=== PATIENT | female | born 1970 | race Caucasian/White ===

== ENCOUNTER 2016-10-14 12:48 | Emergency (ER) | payer BC ==
[~2016-10-14] VITALS: Ht 175.3 cm; Wt 139.7 kg
[~2016-10-14 12:48] MED LIST: PRENTAB26 PO
[2016-10-14 12:54] VITALS: Ht 175.3 cm; Wt 139.7 kg
[2016-10-14] MEDS ORDERED: SODIUM CHLORIDE 0.9% 1000ML 1,000 ML IV STA (13:14)
[2016-10-14] MEDS ORDERED: ACETAMINOPHEN 500 MG TAB PO STA (13:14)
--- NOTE | 2016-10-14 13:28 | EMERGENCY ROOM VISIT NOTE ---
History Report prepared by Floyd: Ramone Salinas Under the Supervision of: Dr. Jimmy Calabrese M.D. First contact with patient: 13:10 Chief Complaint: CHEST PAIN Stated Complaint: CHEST PAIN,BLOOD PRESSURE ALL OVER,NOT FEELING WEL Nursing Triage Summary: Pt called PCP and was referred here. On Tuesday pt felt like her heart was racing and has had CP intermittently for the past few days. CP is now gone, but doesn' t feel well. Pt verbalizes she has been checking her BP at home and it has been "all over the place". History of Present Illness The patient is a 46 year old female who presents to the Emergency Room with complaints of resolving chest pain that started 2 days ago. She says that she woke up 2 mornings ago, and her heart was racing. She was unsure if it was anxiety-related, but ever since then, she has been having intermittent chest pain. The patient adds that she has not been feeling well. She says that yesterday, the chest pain was constant but not too bad. She states that today, her chest doesn't feel right but the pain is mostly gone. She says that the pain is not worsened with deep breathing. The patient called her primary care physician this morning, and was sent here. She notes that her blood pressure has been "all over the place" for the past few days. The patient says she has no history of this chest pain. She says that she has been eating and drinking fine recently, and she denies any shortness of breath, nausea, vomiting, diarrhea, fevers, chills, cough, constipation, or leg swelling. The patient adds that recently, if she goes a while without eating, she starts shaking, but it is resolved by eating. She says she has no history of anxiety, and has had no new stresses recently. The patient denies any recent lifting of heavy objects , but she notes that she has been walking more again recently, as she hurt her knee in January. The patient says that her father had a heart attack in his late 40s, and he was a smoker. The patient is a non-smoker. She takes blood pressure and hypertension medication daily. Source of History: patient Onset: 2 days ago Position: chest Timing: other (resolving) Associated Symptoms: No fevers, No chills, No cough, No SOB, No nausea, No vomiting, No diarrhea Note: Associated symptoms: Not feeling "well". Denies constipation, leg swelling. Review of Systems See HPI for pertinent positives and negatives. A total of ten systems were reviewed and were otherwise negative. Past Medical & Surgical Medical Problems: (1) HLD (hyperlipidemia) (2) HTN (hypertension) Family History Heart disease Social History Smoking Status: Never Smoker Smokeless Tobacco Use: No Marital Status: Housing Status: lives with family Occupation Status: employed Current/Historical Medications Scheduled Atorvastatin (Lipitor), 20 MG PO DAILY Hydrochlorothiazide (Hydrochlorothiazide), 12.5 MG PO DAILY Allergies Coded Allergies: Ibuprofen (Verified Allergy, Unknown, MOTRIN, 10/14/16) Physical Exam Vital Signs Date Time Temp Pulse Resp B/P (MAP) Pulse Ox O2 Delivery O2 Flow Rate FiO2 10/14/16 16:09 36.9 73 14 136/91 98 10/14/16 15:42 73 14 136/91 98 Room Air 10/14/16 14:03 100 Room Air 10/14/16 14:03 74 20 158/98 100 Room Air 10/14/16 13:24 66 10/14/16 12:54 36.9 74 18 167/92 98 Physical Exam GENERAL: Awake, alert, well-appearing, in no distress HENT: Normocephalic, atraumatic. Oropharynx unremarkable. Dry mucous membranes. EYES: Normal conjunctiva. Sclera non-icteric. NECK: Supple. No nuchal rigidity. FROM. No JVD. RESPIRATORY: Clear to auscultation. CHEST: Reproducible left-sided chest pain. CARDIAC: Regular rate, normal rhythm. Extremities warm and well perfused. Pulses equal. ABDOMEN: Obese, soft, non-distended. No tenderness to palpation. No rebound or guarding. No masses. RECTAL: Deferred. MUSCULOSKELETAL: Chest examination reveals no tenderness. The back is symmetrical on inspection without obvious abnormality. There is no CVA tenderness to palpation. No joint edema. LOWER EXTREMITIES: Calves are equal size bilaterally and non-tender. No edema. No discoloration. NEURO: Normal sensorium. No sensory or motor deficits noted. SKIN: No rash or jaundice noted. Medical Decision & Procedures ER Provider Diagnostic Interpretation: X-ray: Per my interpretation, radiologist review. CHEST ONE VIEW PORTABLE HISTORY: Atypical CHEST PAIN COMPARISON: No priors for comparison due to PACS downtime. FINDINGS: Cardiac silhouette is borderline enlarged. Mild central pulmonary vascular congestion. No evidence for pulmonary edema. No pleural effusions. No pneumothorax. No focal lung consolidations. IMPRESSION: Borderline enlargement of the cardiac silhouette with mild central pulmonary vascular congestion. Electronically signed by: Carlito Carter M.D. 10/14/2016 2:10 PM Dictated Date/Time: 10/14/2016 2:09 PM Laboratory Results 10/14/16 13:05 Red Blood Count 4.42, Mean Corpuscular Volume 89.8, Mean Corpuscular Hemoglobin 31.0, Mean Corpuscular Hemoglobin Concent 34.5, Mean Platelet Volume 8.9, Neutrophils (%) (Auto) 52.6, Lymphocytes (%) (Auto) 29.0, Monocytes (%) (Auto) 11.1, Eosinophils (%) (Auto) 6.3, Basophils (%) (Auto) 0.7, Neutrophils # (Auto ) 3.93, Lymphocytes # (Auto) 2.16, Monocytes # (Auto) 0.83, Eosinophils # (Auto ) 0.47, Basophils # (Auto) 0.05 10/14/16 13:05 Test 10/14/16 13:05 White Blood Count 7.46 K/uL (4.8-10.8) Red Blood Count 4.42 M/uL (4.2-5.4) Hemoglobin 13.7 g/dL (12.0-16.0) Hematocrit 39.7 % (37-47) Mean Corpuscular Volume 89.8 fL (80-100) Mean Corpuscular Hemoglobin 31.0 pg (25-34) Mean Corpuscular Hemoglobin Concent 34.5 g/dl (32-36) Platelet Count 258 K/uL (130-400) Mean Platelet Volume 8.9 fL (7.4-10.4) Neutrophils (%) (Auto) 52.6 % Lymphocytes (%) (Auto) 29.0 % Monocytes (%) (Auto) 11.1 % Eosinophils (%) (Auto) 6.3 % Basophils (%) (Auto) 0.7 % Neutrophils # (Auto) 3.93 K/uL (1.4-6.5) Lymphocytes # (Auto) 2.16 K/uL (1.2-3.4) Monocytes # (Auto) 0.83 K/uL (0.11-0.59) Eosinophils # (Auto) 0.47 K/uL (0-0.5) Basophils # (Auto) 0.05 K/uL (0-0.2) RDW Standard Deviation 40.1 fL (36.4-46.3) RDW Coefficient of Variation 12.2 % (11.5-14.5) Immature Granulocyte % (Auto) 0.3 % Immature Granulocyte # (Auto) 0.02 K/uL (0.00-0.02) Anion Gap 7.0 mmol/L (3-11) Est Creatinine Clear Calc Drug Dose 132.6 ml/min Estimated GFR () 102.5 Estimated GFR (Non- 88.4 BUN/Creatinine Ratio 13.8 (10-20) Calcium Level 8.6 mg/dl (8.5-10.1) Troponin I < 0.015 ng/ml (0-0.045) Pro-B-Type Natriuretic Peptide 70 pg/ml (0-450) Laboratory results reviewed by me Medications Administered Medications (Trade) Dose Ordered Sig/Jeanie Route Start Time Stop Time Status Last Admin Dose Admin Sodium Chloride 1,000 ml @ 999 mls/hr Q1H1M STAT IV 10/14/16 13:14 10/14/16 14:14 DC 10/14/16 14:01 999 MLS/HR Acetaminophen (Tylenol Tab) 1,000 mg NOW STAT PO 10/14/16 13:14 10/14/16 13:23 DC 10/14/16 14:00 1,000 MG ECG Indication: chest pain Rate (beats per minute): 76 Rhythm: normal sinus Findings: no acute ischemic change, other (normal axis) ED Course 1312: The patient was evaluated in room B4B. A complete history and physical exam was performed. 1314: Ordered Tylenol Tab 1000 mg PO, NSS 1000 ml @ 999 mls/hr IV. 1532: I reevaluated the patient, and did an echo, which revealed no pericardial effusion and a good EF. The patient verbally expressed understanding and agreement of the treatment plan. The patient will be discharged. Medical Decision I reviewed the patient's past medical history, medications, and the nursing notes as described above. Differential diagnoses: ACS, pneumonia, bronchitis, costochondritis, anxiety, arrhythmia, dehydration, electrolyte abnormality. Patient is a 46-year-old woman presents emergency Department with legs they complaints of palpitations and chest pain that started on Tuesday which she feels has been constant all day yesterday and then somewhat present today per history of present illness. Arrival the patient is in no acute distress, afebrile with stable vital signs. The patient reports father was a smoker and drink alcohol did have an DC in his 40s, as the patient is obese with hypertension and hyperlipidemia. EKG is unremarkable in the setting of prolonged symptoms and in particular constant symptoms since yesterday. Patient has reproducible pain in her left upper chest. 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 Presuming the patient's troponin returns negative in the setting constant pain, the patient would have a hard score of 3, low risk, and therefore could be discharged with follow-up with her PCP. PE unlikely in the setting of the patient is not tachycardic or hypoxic and denies any pleuritic symptoms, thus PERC negative. Troponin negative and a setting of constant pain thus ACS, unlikely. Chest x- ray with question cardiomegaly and venous congestion. Thus, BNP ordered and unremarkable. Bedside echo performed and showed no pericardial effusion and otherwise grossly normal LV and RV size and function. Findings and plan for follow-up d/w patient. Patient agreeable and d/c'd per discharge instructions. Medication Reconcilliation Current Medication List: was personally reviewed by me Blood Pressure Screening Patient's blood pressure: Elevated blood pressure Blood pressure disposition: Referred to PCP Impression Primary Impression: Chest wall pain Additional Impression: HTN (hypertension) Scribe Attestation The scribe's documentation has been prepared under my direction and personally reviewed by me in its entirety. I confirm that the note above accurately reflects all work, treatment, procedures, and medical decision making performed by me. Departure Information Dispostion Home / Self-Care Referrals No Doctor, Assigned (PCP) Patient Instructions Chest Pain - [facility], ED Chest Pain Antionette Acosta [facility] Additional Instructions Please follow up with your primary care physician in the next 1-3 days for reevaluation and to discuss your blood pressure. Otherwise, your exam, EKG, chest x-ray, lab results, and bedside ultrasound of your heart did not show signs of an emergent condition at this time. Acetaminophen for pain as needed. Heating pad at 20 minute intervals for additional pain relief. Return to the emergency department for worsening symptoms as described in the accompanying instructions. Problem Qualifiers
[2016-10-14 13:31] LABS: BASO % 0.7 %; BASO ABS # 0.05 K/uL (0-0.2); COMPLETE YES; EOS % 6.3 %; HEMATOCRIT 39.7 % (37-47); IG% 0.3 %; LYMPH ABS # 2.16 K/uL (1.2-3.4); MEAN CELL VOLUME 89.8 fL (80-100); MEAN CORPUSCULAR HGB CONC 34.5 g/dl (32-36); MEAN PLATELET VOLUME 8.9 fL (7.4-10.4); MONO % 11.1 %; NEUT % 52.6 %; PLATELET COUNT 258 K/uL (130-400); RED BLOOD COUNT 4.42 M/uL (4.2-5.4); WHITE BLOOD COUNT 7.46 K/uL (4.8-10.8)
[2016-10-14 13:43] LABS: BLOOD UREA NITROGEN 11 mg/dl (7-18); BUN/CREATININE RATIO 13.8 (10-20); CALCIUM 8.6 mg/dl (8.5-10.1); CARBON DIOXIDE 27 mmol/L (21-32); CHLORIDE 104 mmol/L (98-107); GLUCOSE 80 mg/dl (70-99); POTASSIUM 3.5 mmol/L (3.5-5.1); SODIUM 138 mmol/L (136-145)
[2016-10-14 14:03] VITALS: O2SAT 100
--- NOTE | 2016-10-14 14:12 | DIAGNOSTIC IMAGING REPORT ---
CHEST ONE VIEW PORTABLE HISTORY: Atypical CHEST PAIN COMPARISON: No priors for comparison due to PACS downtime. FINDINGS: Cardiac silhouette is borderline enlarged. Mild central pulmonary vascular congestion. No evidence for pulmonary edema. No pleural effusions. No pneumothorax. No focal lung consolidations. IMPRESSION: Borderline enlargement of the cardiac silhouette with mild central pulmonary vascular congestion. Electronically signed by: Carlito Carter M.D. 10/14/2016 2:10 PM Dictated Date/Time: 10/14/2016 2:09 PM
[2016-10-14] MEDS ORDERED: ATOR-22 PO (14:43)
[2016-10-14] MEDS ORDERED: HYDR12.55 PO (14:43)
[2016-10-14 16:09] VITALS: BP 136/91; PULSE 73; TEMP 36.9; O2SAT 98
== END 2016-10-14 16:10 | disposition home or self-care (01) ==
LOC: C.EDB 12:49
DX: R07.89 Other chest pain (principal); I10 Essential (primary) hypertension; Z82.49 Family history of ischemic heart disease and other diseases of the circulatory system; E78.5 Hyperlipidemia, unspecified; Z79.899 Other long term (current) drug therapy; E66.9 Obesity, unspecified; Z68.42 Body mass index [BMI] 45.0-49.9, adult